=== PATIENT | female | born 1955 | race Caucasian/White ===

== ENCOUNTER 2019-05-17 13:48 | Emergency (ER) | payer BC ==
--- OUTSIDE RECORDS SUMMARY | 2019-05-17 13:52 | XMS REPORT | Continuity of Care Document ---
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) Hypothyroidism Active Problem 07/30/2016 MH (disorder) [facility] Mass of back Resolved Problem 07/30/2016 (finding) [facility] Obesity Active Problem 07/30/2016 MH (disorder) [facility] Medications Medication Details Route Status Patient Ordering Order Source Instructions Provider Date Fentanyl 50 microgram, Inactive Route: IVP, 2015 [facility] ONCE, Dosing Weight 89.545, kg, Start date: 07/27/16 15:51:00 MMD UNIT TEACHER, Stop date: 07/27/16 15:51:00 MMD UN[employer] TEACHER Fentanyl 50 microgram, Inactive Route: IVP, 2015 [facility] ONCE, Dosing Weight 89.545, kg, Start date: 07/27/16 15:37:00 MMD UNIT TEACHER, Stop date: 07/27/16 15:37:00 MMD UN[employer] TEACHER Flumazenil 0.2 mg, Route: Inactive IVP, PRN, 2015 [facility] Dosing Weight 89.545, kg, PRN Benzodiazepine Reversal, Initial dose, Start date: 07/27/16 15:35:00 MMD UN[employer] TEACHER, Duration: 30 day, Stop date: 08/26/16 15:34:00 MMD UNIT TEACHER Meperidine 12.5 mg, Route: Inactive IVP, Q30Min, 2015 [facility] Dosing Weight 89.545, kg, PRN Other -See Comment, For shivering, Start date: 07/27/16 15:35:00 MMD UNIT TEACHER, Duration: 2 doses or times, Stop date: Limited # of times Diphenhydramine 12.5 mg, Route: Inactive IVP, Drug form: 2015 [facility] INJ, Q6H, Dosing Weight 89.545, kg, PRN Itching, Start date: 07/27/16 15:35:00 MMD UNIT TEACHER, Duration: 30 day, Stop date: 08/26/16 15:34:00 MMD UNIT TEACHER Naloxone 0.4 mg, Route: Inactive 07/[facility] IVP, Q2MIN, 2015 [facility] Dosing Weight 89.545, kg, PRN Narcotic Reversal, Start date: 07/27/16 15:35:00 MMD UNIT TEACHER, Duration: 8 doses or times, Stop date: Limited # of times Promethazine 6.25 mg, Route: Inactive 07/27[facility] IVPB, ONCE, 2015 [facility] Dosing Weight 89.545, kg, PRN Nausea & Vomiting, Start date: 07/27/16 15:35:00 MMD UNIT TEACHER Ondansetron 4 mg, Route: Inactive [facility] IVP, ONCE, 2015 [facility] Dosing Weight 89.545, kg, PRN Nausea & Vomiting, Start date: 07/27/16 15:35:00 MMD UNIT TEACHER Calcium Chloride 1,000 mL, Rate: Inactive 0.0014 MEQ/ML / 125 ml/hr, 2015 [facility] Potassium Infuse over: 8 Chloride 0.004 hr, Route: IV, MEQ/ML / Sodium Dosing Weight Chloride 0.103 89.545 kg, MEQ/ML / Sodium Total Volume: Lactate 0.028 1,000, Start MEQ/ML Injectable date: 07/27/16 Solution 15:35:00 MMD UN[employer] TE[employer]ER, Duration: 30 day, Stop date: 08/26/16 15:34:00 MMD UNIT TEACHER Sodium Chloride 500 mL, Rate: Inactive 0.154 MEQ/ML 125 ml/hr, 2015 [facility] Injectable Infuse over: 4 Solution hr, Route: IV, Dosing Weight 89.545 kg, Total Volume: 500, Start date: 07/27/16 15:35:00 MMD UNIT TEACHER, Duration: 30 day, Stop date: 08/26/16 15:34:00 MMD UNIT TEACHER Labetalol 10 mg, Route: Inactive [facility] IVP, Q5Min, 2015 [facility] Dosing Weight 89.545, kg, PRN Elevated BP, Start date: 07/27/16 15:35:00 MMD UNIT TEACHER, Duration: 5 doses or times, Stop date: Limited # of times esmolol 10 mg, Route: Inactive IVP, Q5Min, 2015 [facility] Dosing Weight 89.545, kg, PRN Other -See Comment, Start date: 07/27/16 15:35:00 MMD UNIT TEACHER, Duration: 5 doses or times, Stop date: Limited # of times Acetaminophen 1,000 mg, Inactive Route: PO, Drug 2015 [facility] form: TAB, ONCE, Dosing Weight 89.545, kg, PRN Pain Score 1-3, Start date: 07/27/16 15:35:00 MMD UNIT TEACHER, Duration: 1 doses or times, Stop date: Limited # of times Hydromorphone 0.5 mg, Route: Inactive IVP, Q5Min, 2015 [facility] Dosing Weight 89.545, kg, PRN Pain Score 7-10, Start date: 07/27/16 15:35:00 MMD UNIT TEACHER, Duration: 4 doses or times, Stop date: Limited # of times Hydralazine 10 mg, Route: Inactive IVP, Q20Min, 2015 [facility] Dosing Weight 89.545, kg, PRN Elevated BP, Start date: 07/27/16 15:35:00 MMD UNIT TEACHER, Duration: 2 doses or times, Stop date: Limited # of times Oxycodone 5 mg, Route: Inactive PO, Drug form: 2015 [facility] TAB, Q4H, Dosing Weight 89.545, kg, PRN Pain Score 4-6, Start date: 07/27/16 15:35:00 MMD UNIT TEACHER, Duration: 30 day, Stop date: 08/26/16 15:34:00 MMD UNIT TEACHER ondansetron Route: IV, Drug Inactive (ANES) form: INJ, 2015 [facility] ONCE, Stop date: 07/27/16 15:23:00 MMD UNIT TEACHER Acetaminophen 300 1 tab, PO, Q6H, Active MG / Codeine PRN pain, X 7 2015 [facility] Phosphate 30 MG day, # 28 tab, Oral Tablet 0 Refill(s) [Tylenol with Codeine #3] Docusate Sodium 100 mg=1 cap, Active 100 MG Oral PO, BID, PRN 2015 Capsule [Colace] Constipation, # 20 cap, 0 Refill(s) ePHEDrine (ANES) Route: IV, Drug Inactive form: INJ, 2015 ONCE, Stop date: 07/27/16 15:08:00 MMD UNIT TEACHER ondansetron Route: IV, Drug Inactive (ANES) form: INJ, 2015 ONCE, Stop date: 07/27/16 14:38:00 MMD UNIT TEACHER dexamethasone Route: IV, Drug Inactive (ANES) form: INJ, 2015 ONCE, Stop date: 07/27/16 14:38:00 MMD UNIT TEACHER midazolam (ANES) Route: IV, Drug Inactive form: SOLN, 2015 ONCE, Stop date: 07/27/16 14:31:00 MMD UNIT TEACHER fentaNYL (ANES) Route: IV, Drug Inactive form: INJ, 2015 ONCE, Stop date: 07/27/16 14:31:00 MMD UNIT TEACHER propofol (ANES) Route: IV, Drug Inactive form: INJ, 2015 ONCE, Stop date: 07/27/16 14:31:00 MMD UNIT TEACHER ceFAZolin (ANES) Route: IV, Drug Inactive form: INJ, 2015 ONCE, Stop date: 07/27/16 14:31:00 MMD UNIT TEACHER lidocaine (ANES) Route: IV, Drug Inactive form: INJ, 2015, Stop date: 07/27/16 14:31:00 MMD UNIT TEACHER LR 1000 mL INJ Route: IV, Inactive (ANES) Total Volume: 2015 1,000, Start date: 07/27/16 13:38:00 MMD UNIT TEACHER, Stop date: 07/27/16 14:38:00 MMD UNIT TEACHER Methylene blue 8.9545 mg, 0.9 Inactive mL, Route: INJ, 2015 Drug form: INJ, ONCE, Dosing Weight 89.545, kg, Start date: 07/27/16 12:47:00 MMD UNIT TEACHER, Stop date: 07/27/16 12:47:00 CSTNotes: (Same as:Methylene Blue) MEDICATION WASTE Product Size: 10 mg Product Wasted: ___ mg Albuterol 0.833 3 mL, Route: Inactive MG/ML / NEB, Drug Form: 2015 [facility] Ipratropium SOLN, Dosing Hydes 0.167 Weight 89.545, MG/ML Inhalant kg, ONCE, STAT, Solution Start date: 07/27/16 10:57:00 MMD UNIT TEACHER, Stop date: 07/27/16 10:57:00 CSTNotes: (Same as: Dumariab) Calcium Chloride 1,000 mL, Rate: Inactive 0.0014 MEQ/ML / 25 ml/hr, 2015 [facility] Potassium Infuse over: 40 Chloride 0.004 hr, Route: IV, MEQ/ML / Sodium Dosing Weight Chloride 0.103 89.545 kg, MEQ/ML / Sodium Total Volume: Lactate 0.028 1,000, Start MEQ/ML Injectable date: 07/27/16 Solution 10:57:00 MMD UNIT TEACHER, Duration: 1 day, Stop date: 07/28/16 10:56:00 MMD UNIT TEACHER Sodium Chloride 500 mL, Rate: Inactive 0.154 MEQ/ML 25 ml/hr, 2015 [facility] Injectable Infuse over: 20 Solution hr, Route: IV, Dosing Weight 89.545 kg, Total Volume: 500, Start date: 07/27/16 10:57:00 MMD UNIT TEACHER, Duration: 1 day, Stop date: 07/28/16 10:56:00 MMD UNIT TEACHER Ancef 2 gm, 100 mL, Inactive Route: IVPB, 2015 [facility] Drug form: INJ, ONCE, Dosing Weight 89.801, kg, Start date: 07/24/16 7:09:00 MMD UNIT TEACHER, Duration: 1 doses or times, Stop date: 07/24/16 7:09:00 MMD UNIT TEACHER, Surgical Prophylaxis Only; For patients Notes: Same as: Ancef Vitamin D3 =1 tab, PO, Active Daily, 0 2015 [facility] Refill(s) droperidol 0.625 mg, IVP No Longer [place] Route: IVP, Active 2012 [facility] ONCE, Dosing Weight 86.364, kg, Start date: 12/02/12 11:50:00, Stop date: 12/02/12 11:50:00 Ofirmev 650 mg, 65 mL, IV No Longer Ba Route: IV, Drug Active 2012 [facility] form: INJ, ONCE, Dosing Weight 86.364, kg, PRN Pain, for acetaminophen-hyd 1 tab, Route: PO No Longer [place] rocodone 325 mg-5 PO, Drug Form: [facility] 2012 [facility] mg oral tablet TAB, Dosing Weight 86.364, kg, Q4H, PRN Pain Score 1-3, Start date: 12/02/12 10:56:00, Duration: 30 day, Stop date: 01/01/13 10:55:00 fentanyl 25 microgram, IVP No Longer [place] 0.5 mL, Route: [facility] 2012 [facility] IVP, Drug form: INJ, Q5Min, Dosing Weight 86.364, kg, PRN Pain Score 4-6, Start date: 12/02/12 10:56:00, Duration: 4 doses or times, Stop date: Limited # of times meperidine 12.5 mg, 0.25 IVP No Longer [place] mL, Route: IVP, 2012 [facility] Drug form: INJ, Q30Min, Dosing Weight 86.364, kg, PRN Other -See Comment, For shivering, Start date: 12/02/12 10:56:00, Duration: 2 doses or times, Stop date: Limited # of times naloxone 0.04 mg, 0.1 IVP No Longer [place] [facility], [facility] Drug form: INJ, Q2MIN, Dosing Weight 86.364, kg, PRN Narcotic Reversal, Start date: 12/02/12 10:56:00, Duration: 8 doses or times, Stop date: Limited # of times flumazenil 0.2 mg, 2 mL, IVP No Longer [place] Route: IVP, [facility] 2012 [facility] Drug form: INJ, PRN, Dosing Weight 86.364, kg, PRN Benzodiazepine Reversal, Initial dose, Start date: 12/02/12 10:56:00, Duration: 5 doses or times, Stop date: Limited # of times hydromorphone 0.5 mg, 0.5 mL, IVP No Longer [place] Route: IVP, [facility] 2012 [facility] Drug form: SOLN, Q5Min, Dosing Weight 86.364, kg, PRN Pain Score 4-6, Start date: 12/02/12 10:56:00, Duration: 5 doses or times, Stop date: Limited # of times ondansetron 4 mg, Route: IVP No Longer [place] IVP, ONCE, Active 2012 [facility] Dosing Weight 86.364, kg, PRN Nausea & Vomiting, Start date: 12/02/12 10:56:00 [place] 5/325 oral 1-2 tab, PO, PO Active [place] tablet Q4-6H, PRN, 15 2012 [facility] tab, 0, 0, Pain, Substitution Allowed, Maintenance Lactated Ringers 1,000 mL, Rate: IV No Longer [place] Luis Injection IV 25 ml/hr, Active 2012 [facility] 1,000 mL Infuse over: 40 hr, Route: IV, kg, Total Volume: 1,000, Start date: 12/02/12 8:43:00, Duration: 30 day, Stop date: 01/01/13 8:42:00 [facility] 1 tab, PO, PO Active oral tablet Daily, 30 tab, 2012 [facility] Substitution Allowed, Maintenance, TAB levothyroxine 50 50 microgram, 1 PO Active mcg (0.05 mg) tab, PO, Daily, 2012 [facility] oral tablet 30 tab, Substitution Allowed, TAB Allergies, Adverse Reactions, Alerts Substance Category Reaction Severity Reaction Status Date Comments Source type Reported sulfa drugs Assertion Drug Active allergy [facility] Immunizations No Data Provided for This Section Results Order Name Results Value Reference Date Interpretation Comments Source Range ELECTROLYTES AGAP 11.5 10.0 - 07/24 20.0 /2015 [facility] ELECTROLYTES A/G Ratio 1.0 0.7 - 1.6 07/24 [facility] ELECTROLYTES Globulin 3.9 2.7 - 4.2 07/24 [facility] ELECTROLYTES B/C Ratio 18 6 - 25 07/24 [facility] ELECTROLYTES AST 13 0 - 37 07/24 [facility] ELECTROLYTES Alk Phos 87 39 - 136 07/24 [facility] ELECTROLYTES Bili Total 0.6 0.2 - 1.3 07/24 [facility] ELECTROLYTES eGFR 72 07/24 Result Comment: The [facility] eGFR is calculated using the CKD-EPI formula. In most young, healthy individuals the eGFR will be >90 mL/min/1.73m2 . The eGFR declines with age. An eGFR of 60-89 may be normal in some populations, particularly the elderly, for whom the CKD-EPI formula has not been extensively validated. Use of the eGFR is not recommended in the following populations:< br/>
Ira viduals with unstable creatinine concentration s, including patients and those with serious co-morbid conditions.<b r/>
Patie nts with extremes in muscle mass or diet.

The data above are obtained from the National Kidney Disease Education Program (NKDEP) which additionally recommends that when the eGFR is used in patients with extremes of body mass index for purposes of drug dosing, the eGFR should be multiplied by the estimated BMI. ELECTROLYTES Potassium 3.5 3.5 - 5.1 07/24 Lvl /2015 [facility] ELECTROLYTES Sodium Lvl 138 135 - 145 07/24 [facility] ELECTROLYTES Calcium Lvl 8.6 8.5 - 10.5 07/24 [facility] ELECTROLYTES Albumin Lvl 3.8 3.5 - 5.0 07/24 [facility] ELECTROLYTES Total 7.7 6.4 - 8.4 07/24 Protein /2015 [facility] ELECTROLYTES ALT 22 0 - 65 07/24 /2015 [facility] ELECTROLYTES CO2 27 24 - 32 07/24 /2015 [facility] ELECTROLYTES Chloride Lvl 103 95 - 109 07/24 /2015 [facility] ELECTROLYTES Creatinine 0.87 0.50 - 07/24 Lvl 1.40 [facility] ELECTROLYTES Glucose Lvl 88 70 - 99 07/24 /2015 [facility] ELECTROLYTES BUN 16 7 - 22 07/24 /2015 [facility] HEMATOLOGY Segs 54.7 45.0 - 07/24 75.0 [facility] HEMATOLOGY Eosinophils 0.3 0.0 - 0.5 07/24 MH # /2016 [facility] HEMATOLOGY Monocytes # 0.6 0.0 - 0.8 07/24 /2015 [facility] HEMATOLOGY Basophils # 0.1 0.0 - 0.2 07/24 /2015 [facility] HEMATOLOGY Lymphocytes 2.0 1.0 - 5.5 07/24 MH # /2016 [facility] HEMATOLOGY Lymphocytes 30.5 20.0 - 07/24 MH 40.0 /2016 [facility] HEMATOLOGY Eosinophils 4.5 0.0 - 4.0 07/24 /2015 [facility] HEMATOLOGY Monocytes 9.1 2.0 - 12.0 07/24 [place] HEMATOLOGY Segs-Bands # 3.6 1.5 - 8.1 11 MH /2015 [place] HEMATOLOGY Basophils 1.2 0.0 - 1.0 07/24 /2015 [place] HEMATOLOGY Hgb 13.2 12.0 - 07/24 MH 16.0 /2015 [place] HEMATOLOGY RBC 4.56 4.20 - 07/24 MH 5.40 /2015 [place] HEMATOLOGY Hct 40.6 36.0 - 07/24 MH 48.0 /2015 [place] HEMATOLOGY MCV 89.0 80.0 - 07/24 MH 98.0 /2015 [place] HEMATOLOGY WBC 6.5 3.7 - 10.4 07/24 /2015 [place] HEMATOLOGY MCHC 32.5 32.0 - 07/24 MH 36.0 /2015 [facility] HEMATOLOGY MCH 28.9 27.0 - 07/24 MH 31.0 /2015 [place] HEMATOLOGY Platelet 327 133 - 450 07/24 /2015 [facility] HEMATOLOGY RDW 14.1 11. - 07/24 MH 14.5 /2015 [facility] HEMATOLOGY MPV 8.7 7.4 - 10.4 07/24 /2015 [facility] HEMATOLOGY MPV 8.6 7.4 - 10.4 03 Normal /2012 [facility] HEMATOLOGY RBC 4.50 4.20 - 11/30 Normal MH 5.40 /2012 [facility] HEMATOLOGY WBC 7.3 3.7 - 10.4 11/30 Normal /2012 [facility] HEMATOLOGY Platelet 336 133 - 450 11/30 Normal /2012 [facility] HEMATOLOGY MCHC 32.5 32.0 - 03 Normal MH 36.0 /2012 [facility] HEMATOLOGY RDW 14.3 11.5 - 11/30 Normal MH 14. [facility] HEMATOLOGY MCH 29.9 27.0 - 11/30 Normal MH 31.0 [facility] HEMATOLOGY Hct 41.4 36.0 - 11/30 Normal MH 48.0 /2012 [facility] HEMATOLOGY MCV 92.1 81.0 - 11/30 Normal MH 99.0 /2012 [facility] HEMATOLOGY Hgb 13.4 12.0 - 11/30 Normal MH 16.0 [facility] HEMATOLOGY Monocytes # 0.6 0.0 - 0.8 / Normal /2012 [facility] HEMATOLOGY Eosinophils 0.2 0.0 - 0.5 / Normal MH # /2012 [facility] HEMATOLOGY Basophils # 0.1 0.0 - 0.2 / Normal /2012 [facility] HEMATOLOGY Segs-Bands # 4.2 1.5 - 8.1 03/20 Normal [facility] HEMATOLOGY Lymphocytes 2.3 1.0 - 5.5 11/30 Normal # /2012 [facility] HEMATOLOGY Eosinophils 3.0 0.0 - 4.0 11/30 Normal [facility] HEMATOLOGY Basophils 0.9 0.0 - 1.0 11/30 Normal [facility] HEMATOLOGY Monocytes 7.7 2.0 - 12.0 11/30 Normal [facility] HEMATOLOGY Lymphocytes 31.7 20.0 - 11/30 Normal 40.0 [facility] HEMATOLOGY Segs 56.7 45.0 - 11/30 Normal 75.0 [facility] Pathology Reports No Data Provided for This Section Diagnostic Reports Report Value Date Source Breast specimen surgery - BREAST SPECIMEN SURGERY 07/27/2016 [facility] UNI-PLANAR RADIOGRAPH SPECIMEN IMAGING RIGHT BREAST- POST LUMPECTOMY: 2015 CLINICAL: Specimen from needle localization right breast cancer. Correlation is made to exams dated: 07/27/2016 mammogram, 07/27/2016 localization - [facility], 06/11/2016 ultrasound biopsy, 2015 ultrasound, 11/19/2011 mammogram - [facility] and 06/07/2003 [facility]ogram - [facility]. A wire localization specimen was imaged using uni-planar radiograph specimen imaging for the concerning spiculated irregular shaped mass/previous biopsy site located in the right breast at 2 o&apos ;clock middle depth. This was described on the previous ultrasound and biopsy reports. IMPRESSION: UNI-PLANAR RADIOGRAPH SPECIMEN IMAGING The imaged specimen includes the biopsied lesion, a biopsy clip and the distal portion of the localization wire. The specimen shows characteristics of the mammographic findings. Specimen radiograph was discussed with the surgeon at approximately 1500 hours on the day of the localization. Please see localization report and separate diagnostic mammogram reports for further details. Karina feliz/:07/27/2016 15:26:08 Civil Cad Tech: Celia Rodriguez, [facility] This exam was dictated and interpreted by [id number] for [facility] Breast [place]. Digital Mammo DX Uni MA - DIGITAL MAMMO DX UNI MA/R 07/27/2016 [facility] UNILATERAL RIGHT DIGITAL DIAGNOSTIC MAMMOGRAM WITH CAD: 07/27/2016 CLINICAL: Post wire digital mammogram films from ultrasound localization. Current study was evaluated with a Computer Aided Detection (CAD) system. Comparison is made to exams dated: 07/27/2016 localization - [facility], 06/11/2016 ultrasound biopsy, 06/03/2016 ultrasound, 2011 mammogram - [facility], 06/07/2003 m ammogram and 05/03/2001 mammogram - [facility] [place] [facility]. The tissue of the right breast is heterogeneously dense, which could obscure detection of small masses. Post procedure right digital mammogram demonstrates successful placement of the needle localization wire. The biopsied mass with clip lies at bead 2-3 of the wire. Radiographs with markings and notes were provided to the surgeon. There is a benign appearing calcification in the right breast. There also are benign appearing scattered densities in the right breast. IMPRESSION: KNOWN BIOPSY PROVEN MALIGNANCY Successful ultrasound needle localization with preoperative films as detailed above. Please see separate ultrasound localization and specimen radiograph reports for more details. Karina atkinst/:07/27/2016 15:26:57 Civil Cad Tech: Celia Rodriguez, [facility] This exam was dictated and interpreted by [id number] for [facility]. Mammogram BI-RADS: 6 Known biopsy proven malignancy Sentinal Node injection Sentinal Node injection NM 07/27/2016 [facility] CLINICAL HISTORY: 60 year-old female with right breast carcinoma presents for preoperative sentinel node injection. TECHNIQUE: The patient was cleaned and prepped in the usual manner. 1 mCi of Tc 99m filtered sulfur colloid was administered in the subareolar location of the right breast. The patient tolerated procedure well. The patient's right breast will be massaged per protocol by the nuclear powerplant mechanic helper prior to sending the patient for surgery. IMPRESSION: Injection performed without incident. No immediate complications. SL: [id number] Guided Needle - GUIDED NEEDLE LOCALIZATION [facility] US/R 07/27/2016 [facility] ULTRASOUND GUIDED WIRE LOCALIZATION RIGHT BREAST WITH POST DIGITAL MAMMOGRAPHIC AND ULTRASOUND IMAGIN07/27/2016 CLINICAL: Right breast 2 o'clock breast cancer preoperative localization exam. PATIENT CONSENT: Oral and written informed consent was obtained by the surgical department but was reviewed with the patient prior to performing this procedure. Risks, benefits, and alternatives were d iscussed with the patient. Risks include but are not limited to pain, infection, bleeding, repeat procedure, pneumothorax, and allergic reaction. The patient understands the plan and wishes to proceed. A time out was performed immediately before the procedure. Correlation is made to exams dated: 06/03/2016 ultrasound, 06/11/2016 ultrasound biopsy and 11/19/2011 mammogram - [facility]. A wire localization using ultrasound guidance was performed for the concerning indistinct irregular shaped mass with biopsy clip located in the right breast at 2 o'clock middle depth. This was described on the previous ultrasound and biopsy reports. The skin was prepped in the usual manner. The localization was approached from the lateral aspect. A wire was inserted adjacent to the marker under ultrasound guidance. A skin adhesive and a sterile dressing were applied to the access site. Post placement digital mammographic and ultrasound imaging demonstrates the tip traverses adjacent to the marker. IMPRESSION: WIRE LOCALIZATION MALIGNANT Wire localization for the mass with biopsy clip in the right breast at 2 o' clock middle depth was successful with no apparent post procedure complications. Pathology indicates malignant results - '1. Right axillary 1st sentinel lymph node: - One lymph node, no tumor present. - Immunohistochemical stain for cytokeratin AE1/AE3 is negative for metastatic carcinoma. 2. Right axillary 2nd sentinel lymph node: - One lymph node, no tumor present. - Immunohistochemical stain for cytokeratin AE1/AE3 is negative for metastatic carcinoma. 3. Right axillary tissue with 3rd sentinel lymph node: - One lymph node, no tumor present. - Immunohistochemical stain for cytokeratin AE1/AE3 is negative for metastatic carcinoma. 4. Right breast needle localization-guided partial mastectomy: - INVASIVE DUCTAL CARCINOMA, NUCLEAR GRADE 2-3. Tumor is at least 3 cm in greatest dimension. - DUCTAL CARCINOMA IN SITU, NUCLEAR GRADE 2-3, SOLID AND CRIBRIFORM PATTERN. - Tumor is probably at 0.2 mm from the closest anterior-superior inked margin of resection and 0.4 mm from the inked posterior margin of resection. - Changes consistent with previous biopsy site. - Fibrocystic changes with columnar cell alteration, duct ectasia, complex sclerosing lesion, focal sclerosing adenosis, and focal chronic inflammation'. Surgical pathology results are concordant with imaging findings. Continued oncologic and surgical consultation is recommended. Above results called to Dr. Costa at approximately 1600 hrs 07/30/16. SUMMARY: Please see separate diagnostic mammogram for details on the localization wire. Specimen radiograph was also performed with results on a separate report. Karina feliz/:07/31/2016 08:27:19 Civil Cad Tech: Rg Nye, [facility] This exam was dictated and interpreted by [id number] for [facility]. Consultation Notes No Data Provided for This Section Discharge Summaries No Data Provided for This Section History and Physicals No Data Provided for This Section Vital Signs Vital Sign Value Date Comments Source Systolic (mm Hg) 122 07/27/2016 [facility] Diastolic (mm Hg) 58 07/27/2016 [facility] Systolic (mm Hg) 138 07/27/2016 [facility] Diastolic (mm Hg) 58 07/27/2016 [facility] Systolic (mm Hg) 139 07/27/2016 [facility] Diastolic (mm Hg) 70 07/27/2016 [facility] Respitory Rate 14 07/27/2016 [facility] Respitory Rate 14 07/27/2016 [facility] Respitory Rate 14 07/27/2016 [facility] Heart Rate 70 07/27/2016 [facility] Heart Rate 68 07/24/2016 [facility] Temperature Oral (F) 97.9 F 07/24/2016 [facility] Height 167.64 cm 07/24/2016 [facility] Weight 89.545 07/24/2016 [facility] BMI Calculated 31.86 07/24/2016 [facility] Systolic (mm Hg) 112 12/02/2012 [facility] Diastolic (mm Hg) 63 12/02/2012 [facility] Respitory Rate 15 12/02/2012 [facility] Diastolic (mm Hg) 63 12/02/2012 [facility] Systolic (mm Hg) 111 12/02/2012 [facility] Respitory Rate 22 12/02/2012 [facility] Diastolic (mm Hg) 59 12/02/2012 [facility] Respitory Rate 15 12/02/2012 [facility] Systolic (mm Hg) 104 12/02/2012 [facility] Heart Rate 79 12/02/2012 [facility] Height 167.64 cm 11/30/2012 [facility] Heart Rate 88 11/30/2012 [facility] Temperature Oral (F) 97.6 F 11/30/2012 [facility] Height 167.64 cm 11/30/2012 [facility] Weight 86.364 11/30/2012 [facility] Encounters Location Location Encounter Encounter Reason Attending ADM DC Status Source Details Type Number For Provider Date Date Visit OD [id number] V76.11 - GISELL 11/18 Active [facility] 0 SCREEN SMITH [place] MAMMOGRA DS [id number] JAZZ 12/02 12/02 Discharg [facility] 0 CHARLES /2012 ed [facility] Outpatient [id number] HYLTON LE 07/07 [facility] [place] Outpatient [id number] HYLTON LE 07/27 [facility] [id number] Hylton Le 07/27 07/27 [facility] Outpatient [id number] HYLTON LE 08/04 [facility] Outpatient [id number] HYLTON LE 08/27 [facility] Procedures Procedure Code Date Perfomer Comments Source Metal foreign [id number] 09/13/2013 Remove [facility] body in Hardware foot<sup>1</sup> 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 Alcohol Never Smoking Status Never smoker; Exposure to Tobacco Smoke None; Cigarette Smoking Last 365 Days No; Reg Smoking Cessation Counseling No Family History No Data Provided for This Section Advance Directives No Data Provided for This Section Functional Status No Data Provided for This Section
--- OUTSIDE RECORDS SUMMARY | 2019-05-17 13:52 | XMS REPORT | Summary of Care ---
:1955 Author Organization [facility] Address [address] [place], [place] [address]- Encounter HQ Tesfaye(FIN) [id number] Date(s): 07/27/16 - 07/27/16 [facility] [address] [place] [address]- Discharge Disposition: Home or Self Care Attending Physician: Warner Costa MD Referring Physician: Warner Costa MD Vital Signs Most recent to oldest 1 2 3 [Reference Range]: Height 167.64 cm (07/24/16 6:51 AM) Temperature Oral [96.4-99.1 97.9 DegF DegF] (07/24/16 6:56 AM) Blood Pressure 122/58 mmHg 138/58 mmHg 139/70 mmHg [90-140/60-90 mmHg] (07/27/16 4:41 PM) (07/27/16 4:05 PM) (07/27/16 3:45 PM) Respiratory Rate [14-20 14 BRMIN 14 BRMIN 14 BRMIN BRMIN] (07/27/16 3:45 PM) (07/27/16 3:30 PM) (07/27/16 3:16 PM) Peripheral Pulse Rate 70 bpm 68 bpm [60-100 bpm] (07/27/16 11:01 AM) (07/24/16 6:56 AM) Weight 89.545 kg (07/24/16 6:51 AM) Body Mass Index 31.86 m2 (07/24/16 6:51 AM) Problem List Condition Effective Dates Status Health Status Informant Hypertension(Confirmed) Active Hypothyroid(Confirmed) Active Mass of back(Confirmed) Resolved Obesity(Confirmed) Active Allergies, Adverse Reactions, Alerts Substance Reaction Severity Status sulfa drugs Active Medications albuterol-ipratropium 2.5-0.5 mg inhalation solution 3 mL, Route: NEB, Drug Form: SOLN, Dosing Weight 89.545, kg, ONCE, STAT, Start date: 07/27/16 10:57:00 PLATE SETTER, Stop date: 07/27/16 10:57:00 PLATE SETTER Notes: (Same as: Laure) Start Date: 07/27/16 Stop Date: 07/27/16 Status: DiscontinuedAncef 2 gm, 100 mL, Route: IVPB, Drug form: INJ, ONCE, Dosing Weight 89.801, kg, Start date: 07/24/16 7:09:00 PLATE SETTER, Duration: 1 doses or times, Stop date: 7:09:00 PLATE SETTER, Surgical Prophylaxis Only; For patients < 120 kg Notes: Same as: Ancef Start Date: 07/24/16 Stop Date: 07/24/16 Status: OrderedANES acetaminophen 1,000 mg, Route: PO, Drug form: TAB, ONCE, Dosing Weight 89.545, kg, PRN Pain Score 1-3, Start date:07/27/16 15:35:00 PLATE SETTER, Duration: 1 doses or times, Stop date: Limited # of times Start Date: 07/27/16 Stop Date: 07/27/16 Status: DiscontinuedANES diphenhydrAMINE 12.5 mg, Route: IVP, Drug form: INJ, Q6H, Dosing Weight 89.545, kg, PRN Itching , Start date: 07/27/16 15:35:00 PLATE SETTER, Duration: 30 day, Stop date: 08/26/16 15:34 :00 PLATE SETTER Start Date: 07/27/16 Stop Date: 07/27/16 Status: DiscontinuedANES esmolol 10 mg, Route: IVP, Q5Min, Dosing Weight 89.545, kg, PRN Other -See Comment, Start date: 07/27/16 15:35:00 PLATE SETTER, Duration: 5 doses or times, Stop date: Limited # of times Start Date: 07/27/16 Stop Date: 07/27/16 Status: DiscontinuedANES flumazenil 0.2 mg, Route: IVP, PRN, Dosing Weight 89.545, kg, PRN Benzodiazepine Reversal, Initial dose, Start date: 07/27/16 15:35:00 PLATE SETTER, Duration: 30 day, Stop date: 15:34:00 PLATE SETTER Start Date: 07/27/16 Stop Date: 07/27/16 Status: DiscontinuedANES hydrALAZINE 10 mg, Route: IVP, Q20Min, Dosing Weight 89.545, kg, PRN Elevated BP, Start date : 07/27/16 15:35:00 PLATE SETTER, Duration: 2 doses or times, Stop date: Limited # of times Start Date: 07/27/16 Stop Date: 07/27/16 Status: DiscontinuedANES HYDROmorphone 0.5 mg, Route: IVP, Q5Min, Dosing Weight 89.545, kg, PRN Pain Score 7-10, Start date: 07/27/16 15:35:00 PLATE SETTER, Duration: 4 doses or times, Stop date: Limited # of times Start Date: 07/27/16 Stop Date: 07/27/16 Status: DiscontinuedANES labetalol 10 mg, Route: IVP, Q5Min, Dosing Weight 89.545, kg, PRN Elevated BP, Start date : 07/27/16 15:35:00 PLATE SETTER, Duration: 5 doses or times, Stop date: Limited # of times Start Date: 07/27/16 Stop Date: 07/27/16 Status: DiscontinuedANES meperidine 12.5 mg, Route: IVP, Q30Min, Dosing Weight 89.545, kg, PRN Other -See Comment, For shivering, Start date: 07/27/16 15:35:00 PLATE SETTER, Duration: 2 doses or times, Stop date: Limited # of times Start Date: 07/27/16 Stop Date: 07/27/16 Status: DiscontinuedANES naloxone 0.4 mg, Route: IVP, Q2MIN, Dosing Weight 89.545, kg, PRN Narcotic Reversal, Start date: 07/27/16 15:35:00 PLATE SETTER, Duration: 8 doses or times, Stop date: Limited # of times Start Date: 07/27/16 Stop Date: 07/27/16 Status: DiscontinuedANES ondansetron 4 mg, Route: IVP, ONCE, Dosing Weight 89.545, kg, PRN Nausea & Vomiting, Start date: 07/27/16 15:35:00 PLATE SETTER Start Date: 07/27/16 Stop Date: 07/27/16 Status: DiscontinuedANES oxyCODONE 5 mg, Route: PO, Drug form: TAB, Q4H, Dosing Weight 89.545, kg, PRN Pain Score 4 -6, Start date: 07/27/16 15:35:00 PLATE SETTER, Duration: 30 day, Stop date: 08/26/16 15: 34:00 PLATE SETTER Start Date: 07/27/16 Stop Date: 07/27/16 Status: DiscontinuedANES oxyCODONE 10 mg, Route: PO, Drug form: TAB, Q4H, Dosing Weight 89.545, kg, PRN Pain Score 7-10, Start date: 07/27/16 15:35:00 PLATE SETTER, Duration: 30 day, Stop date: 08/26/16 15:34:00 PLATE SETTER Start Date: 07/27/16 Stop Date: 07/27/16 Status: DiscontinuedANES promethazine 6.25 mg, Route: IVPB, ONCE, Dosing Weight 89.545, kg, PRN Nausea & Vomiting , Start date: 07/27/16 15:35:00 PLATE SETTER Start Date: 07/27/16 Stop Date: 07/27/16 Status: DiscontinuedceFAZolin (ANES) Route: IV, Drug form: INJ, ONCE, Stop date: 07/27/16 14:31:00 PLATE SETTER Start Date: 07/27/16 Stop Date: 07/27/16 Status: CompletedColace 100 mg oral capsule 100 mg=1 cap, PO, BID, PRN Constipation, # 20 cap, 0 Refill(s) Start Date: 07/27/16 Status: Ordereddexamethasone (ANES) Route: IV, Drug form: INJ, ONCE, Stop date: 07/27/16 14:38:00 PLATE SETTER Start Date: 07/27/16 Stop Date: 07/27/16 Status: CompletedePHEDrine (ANES) Route: IV, Drug form: INJ, ONCE, Stop date: 07/27/16 15:08:00 PLATE SETTER Start Date: 07/27/16 Stop Date: 07/27/16 Status: CompletedfentaNYL 50 microgram, Route: IVP, ONCE, Dosing Weight 89.545, kg, Start date: 07/27/16 15:51:00 PLATE SETTER, Stop date: 07/27/16 15:51:00 PLATE SETTER Start Date: 07/27/16 Stop Date: 07/27/16 Status: CompletedfentaNYL 50 microgram, Route: IVP, ONCE, Dosing Weight 89.545, kg, Start date: 07/27/16 15:37:00 PLATE SETTER, Stop date: 07/27/16 15:37:00 PLATE SETTER Start Date: 07/27/16 Stop Date: 07/27/16 Status: CompletedfentaNYL (ANES) Route: IV, Drug form: INJ, ONCE, Stop date: 07/27/16 14:31:00 PLATE SETTER Start Date: 07/27/16 Stop Date: 07/27/16 Status: CompletedLactated Ringers 1,000 mL 1,000 mL, Rate: 25 ml/hr, Infuse over: 40 hr, Route: IV, Dosing Weight 89.545 kg , Total Volume: 1,000, Start date: 07/27/16 10:57:00 PLATE SETTER, Duration: 1 day, Stop date: 07/28/16 10:56:00 PLATE SETTER Start Date: 07/27/16 Stop Date: 07/27/16 Status: DiscontinuedLactated Ringers Injection IV 1000 mL 1,000 mL, Rate: 125 ml/hr, Infuse over: 8 hr, Route: IV, Dosing Weight 89.545 kg , Total Volume: 1,000, Start date: 07/27/16 15:35:00 PLATE SETTER, Duration: 30 day, Stop date: 08/26/16 15:34:00 PLATE SETTER Start Date: 07/27/16 Stop Date: 07/27/16 Status: Discontinuedlidocaine (ANES) Route: IV, Drug form: INJ, ONCE, Stop date: 07/27/16 14:31:00 PLATE SETTER Start Date: 07/27/16 Stop Date: 07/27/16 Status: CompletedLR 1000 mL INJ (ANES) Route: IV, Total Volume: 1,000, Start date: 07/27/16 13:38:00 PLATE SETTER, Stop date: 14:38:00 PLATE SETTER Start Date: 07/27/16 Stop Date: 07/27/16 Status: Completedmethylene blue 8.9545 mg, 0.9 mL, Route: INJ, Drug form: INJ, ONCE, Dosing Weight 89.545, kg, Start date: 07/27/16 12:47:00 PLATE SETTER, Stop date: 07/27/16 12:47:00 PLATE SETTER Notes: (Same as:Methylene Blue) MEDICATION WASTE Product Size: 10 mgProduct Wasted: ___ mg Start Date: 07/27/16 Stop Date: 07/27/16 Status: Orderedmidazolam (ANES) Route: IV, Drug form: SOLN, ONCE, Stop date: 07/27/16 14:31:00 PLATE SETTER Start Date: 07/27/16 Stop Date: 07/27/16 Status: Completedondansetron (ANES) Route: IV, Drug form: INJ, ONCE, Stop date: 07/27/16 14:38:00 PLATE SETTER Start Date: 07/27/16 Stop Date: 07/27/16 Status: Completedondansetron (ANES) Route: IV, Drug form: INJ, ONCE, Stop date: 07/27/16 15:23:00 PLATE SETTER Start Date: 07/27/16 Stop Date: 07/27/16 Status: Completedpropofol (ANES) Route: IV, Drug form: INJ, ONCE, Stop date: 07/27/16 14:31:00 PLATE SETTER Start Date: 07/27/16 Stop Date: 07/27/16 Status: Completedsodium chloride 0.9% 500 ml INJ 500 mL 500 mL, Rate: 25 ml/hr, Infuse over: 20 hr, Route: IV, Dosing Weight 89.545 kg, Total Volume: 500, Start date: 07/27/16 10:57:00 PLATE SETTER, Duration: 1 day, Stop date : 07/28/16 10:56:00 PLATE SETTER Start Date: 07/27/16 Stop Date: 07/27/16 Status: DiscontinuedSodium Chloride 0.9% IV 500 mL 500 mL, Rate: 125 ml/hr, Infuse over: 4 hr, Route: IV, Dosing Weight 89.545 kg, Total Volume: 500, Start date: 07/27/16 15:35:00 PLATE SETTER, Duration: 30 day, Stop date: 08/26/16 15:34:00 PLATE SETTER Start Date: 07/27/16 Stop Date: 07/27/16 Status: DiscontinuedTylenol with Codeine #3 oral tablet 1 tab, PO, Q6H, PRN pain, X 7 day, # 28 tab, 0 Refill(s) Start Date: 07/27/16 Stop Date: 08/03/16 Status: OrderedVitamin D3 =1 tab, PO, Daily, 0 Refill(s) Start Date: 07/24/16 Status: Ordered Results ELECTROLYTES Most recent to oldest [Reference Range]: 1 Sodium Lvl [135-145 mEq/L] 138 mEq/L (07/24/16 7:25 AM) Potassium Lvl [3.5-5.1 mEq/L] 3.5 mEq/L (07/24/16 7:25 AM) Chloride Lvl [95-109 mEq/L] 103 mEq/L (07/24/16 7:25 AM) CO2 [24-32 mEq/L] 27 mEq/L (07/24/16 7:25 AM) AGAP [10.0-20.0 mEq/L] 11.5 mEq/L (07/24/16 7:25 AM) CHEM PANEL Most recent to oldest [Reference Range]: 1 Creatinine Lvl [0.50-1.40 mg/dL] 0.87 mg/dL (07/24/16 7:25 AM) eGFR 72 mL/min/1.73m2 1 *NA* (07/24/16 7:25 AM) BUN [7-22 mg/dL] 16 mg/dL (07/24/16 7:25 AM) B/C Ratio [6-25] 18 (07/24/16 7:25 AM) Glucose Lvl [70-99 mg/dL] 88 mg/dL (07/24/16 7:25 AM) Total Protein [6.4-8.4 g/dL] 7.7 g/dL (07/24/16 7:25 AM) Albumin Lvl [3.5-5.0 g/dL] 3.8 g/dL (07/24/16 7:25 AM) Globulin [2.7-4.2 g/dL] 3.9 g/dL (07/24/16 7:25 AM) A/G Ratio [0.7-1.6] 1.0 (07/24/16 7:25 AM) Calcium Lvl [8.5-10.5 mg/dL] 8.6 mg/dL (07/24/16 7:25 AM) ALT [0-65 unit/L] 22 unit/L (07/24/16 7:25 AM) AST [0-37 unit/L] 13 unit/L (07/24/16 7:25 AM) Alk Phos [39-136 unit/L] 87 unit/L (07/24/16 7:25 AM) Bili Total [0.2-1.3 mg/dL] 0.6 mg/dL (07/24/16 7:25 AM) 1Result Comment: The eGFR is calculated using the CKD-EPI formula. In most young , healthy individualsthe eGFR will be >90 mL/min/1.73m2. The eGFR declines with age. An eGFR of 60-89 may be normal in some populations, particularly the elderly, for whom the CKD-EPI formula has not been extensively validated. Use of the eGFR is not recommended in the following populations: Individuals with unstable creatinine concentrations, including patients and those with serious co-morbid conditions. Patients with extremes in muscle mass or diet. The data above are obtained from the National Kidney Disease Education Program ( NKDEP) which additionally recommends that when the eGFR is used in patients with extremes of body mass index for purposesof drug dosing, the eGFR should be multiplied by the estimated BMI.HEMATOLOGY Most recent to oldest [Reference Range]: 1 WBC [3.7-10.4 K/CMM] 6.5 K/CMM (07/24/16 7:25 AM) RBC [4.20-5.40 M/CMM] 4.56 M/CMM (07/24/16 7:25 AM) Hgb [12.0-16.0 g/dL] 13.2 g/dL (07/24/16 7:25 AM) Hct [36.0-48.0 %] 40.6 % (07/24/16 7:25 AM) MCV [80.0-98.0 fL] 89.0 fL (07/24/16 7:25 AM) MCH [27.0-31.0 pg] 28.9 pg (07/24/16 7:25 AM) MCHC [32.0-36.0 g/dL] 32.5 g/dL (07/24/16 7:25 AM) RDW [11.5-14.5 %] 14.1 % (07/24/16 7:25 AM) Platelet [133-450 K/CMM] 327 K/CMM (07/24/16 7:25 AM) MPV [7.4-10.4 fL] 8.7 fL (07/24/16 7:25 AM) Segs [45.0-75.0 %] 54.7 % (07/24/16 7:25 AM) Lymphocytes [20.0-40.0 %] 30.5 % (07/24/16 7:25 AM) Monocytes [2.0-12.0 %] 9.1 % (07/24/16 7:25 AM) Eosinophils [0.0-4.0 %] 4.5 % *HI* (07/24/16 7:25 AM) Basophils [0.0-1.0 %] 1.2 % *HI* (07/24/16 7:25 AM) Segs-Bands # [1.5-8.1 K/CMM] 3.6 K/CMM (07/24/16 7:25 AM) Lymphocytes # [1.0-5.5 K/CMM] 2.0 K/CMM (07/24/16 7:25 AM) Monocytes # [0.0-0.8 K/CMM] 0.6 K/CMM (07/24/16 7:25 AM) Eosinophils # [0.0-0.5 K/CMM] 0.3 K/CMM (07/24/16 7:25 AM) Basophils # [0.0-0.2 K/CMM] 0.1 K/CMM (07/24/16 7:25 AM) Immunizations No data available for this section Procedures Procedure Date Related Diagnosis Body Site Metal foreign body in foot1 09/2013 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 Alcohol Never Smoking Status Never smoker; Exposure to Tobacco Smoke None; Cigarette Smoking Last 365 Days No; Reg Smoking Cessation Counseling No Assessment and Plan No data available for this section
--- OUTSIDE RECORDS SUMMARY | 2019-05-17 13:52 | XMS REPORT | CCD ---
:1955 Author Organization [facility] Care Team Providers Name Role Phone Liliana Riveraveronika Amado Referring Provider Allergies, Adverse Reactions, Alerts Substance Reaction Status NKDA Active Problem List Condition Effective Dates Status Hypothyroid Active Mass of back Active Medications Medication Instructions Start Date End Date Status Lactated Ringers 1,000 mL, Rate: 25 ml/hr, 12/02/2012 12/02/2012 Discontinued Injection IV 1,000 mL Infuse over: 40 hr, Route: IV, kg, Total Volume: 1,000, Start date: 12/02/12 8:43:00, Duration: 30 day, Stop date: 01/01/13 8:42:00 Ofirmev 650 mg, 65 mL, Route: IV, 12/02/2012 12/02/2012 Discontinued Drug form: INJ, ONCE, Dosing Weight 86.364, kg, PRN Pain, for <50 kg, Start date: 12/02/12 10:56:00 acetaminophen-hydrocodone 1 tab, Route: PO, Drug 12/02/2012 12/02/2012 Discontinued 325 mg-5 mg oral tablet Form: TAB, Dosing Weight 86.364, kg, Q4H, PRN Pain Score 1-3, Start date: 12/02/12 10:56:00, Duration: 30 day, Stop date: 01/01/13 10:55:00 acetaminophen-hydrocodone 2 tab, Route: PO, Drug 12/02/2012 12/02/2012 Discontinued 325 mg-5 mg oral tablet Form: TAB, Dosing Weight 86.364, kg, Q4H, PRN Pain Score 4-6, Start date: 12/02/12 10:56:00, Duration: 30 day, Stop date: 01/01/13 10:55:00 fentanyl 25 microgram, 0.5 mL, 12/02/2012 12/02/2012 Discontinued Route: IVP, Drug form: INJ, Q5Min, Dosing Weight 86.364, kg, PRN Pain Score 4-6, Start date: 12/02/12 10:56:00, Duration: 4 doses or times, Stop date: Limited # of times meperidine 12.5 mg, 0.25 mL, Route: 12/02/2012 12/02/2012 Discontinued IVP, Drug form: INJ, Q30Min, Dosing Weight 86.364, kg, PRN Other -See Comment, For shivering, Start date: 12/02/12 10:56:00, Duration: 2 doses or times, Stop date: Limited # of times naloxone 0.04 mg, 0.1 mL, Route: 12/02/2012 12/02/2012 Discontinued IVP, Drug form: INJ, Q2MIN, Dosing Weight 86.364, kg, PRN Narcotic Reversal, Start date: 12/02/12 10:56:00, Duration: 8 doses or times, Stop date: Limited # of times flumazenil 0.2 mg, 2 mL, Route: IVP, 12/02/2012 12/02/2012 Discontinued Drug form: INJ, PRN, Dosing Weight 86.364, kg, PRN Benzodiazepine Reversal, Initial dose, Start date: 12/02/12 10:56:00, Duration: 5 doses or times, Stop date: Limited # of times hydromorphone 0.5 mg, 0.5 mL, Route: 12/02/2012 12/02/2012 Discontinued IVP, Drug form: SOLN, Q5Min, Dosing Weight 86.364, kg, PRN Pain Score 4-6, Start date: 12/02/12 10:56:00, Duration: 5 doses or times, Stop date: Limited # of times ondansetron 4 mg, Route: IVP, ONCE, 12/02/2012 12/02/2012 Completed Dosing Weight 86.364, kg, PRN Nausea & Vomiting, Start date: 12/02/12 10:56:00 One-A-Day Women oral 1 tab, PO, Daily, 30 tab, 11/30/2012 Ordered tablet Substitution Allowed, Maintenance, TAB [place] 5/325 oral tablet 1-2 tab, PO, Q4-6H, PRN, 12/02/2012 12/07/2012 Ordered 15 tab, 0, 0, Pain, Substitution Allowed, Maintenance levothyroxine 50 mcg 50 microgram, 1 tab, PO, 11/30/2012 Ordered (0.05 mg) oral tablet Daily, 30 tab, Substitution Allowed, TAB droperidol 0.625 mg, Route: IVP, 12/02/2012 12/02/2012 Completed ONCE, Dosing Weight 86.364, kg, Start date: 12/02/12 11:50:00, Stop date: 12/02/12 11:50:00 Vital Signs Most recent to oldest 1 2 3 [Reference Range]: Height 167.64 cm 167.64 cm (11/30/2012 10:36:00) (11/30/2012 09:06:00) Current Weight 90 kg (11/30/2012 10:36:00) Temperature Oral 97.6 DegF [96.4-99.1 DegF] (11/30/2012 10:36:00) Systolic Blood Pressure 112 mmHg 111 mmHg 104 mmHg [90-140 mmHg] (12/02/2012 12:00:00) (12/02/2012 11:35:00) (12/02/2012 11:20: 00) Diastolic Blood Pressure 63 mmHg 63 mmHg 59 mmHg [60-90 mmHg] (12/02/2012 12:00:00) (12/02/2012 11:35:00) *LOW* (12/02/2012 11:20:00) Respiratory Rate [14-20 15 BRMIN 22 BRMIN 15 BRMIN BRMIN] (12/02/2012 12:00:00) *HI* (12/02/2012 11:20:00) (12/02/2012 11:35:00) Peripheral Pulse Rate 79 bpm 88 bpm [60-100 bpm] (12/02/2012 08:42:00) (11/30/2012 10:36:00) Weight 86.364 kg (11/30/2012 09:06:00) Results HEMATOLOGY Most recent to oldest [Reference Range]: 1 WBC [3.7-10.4 K/CMM] 7.3 K/CMM (11/30/2012 10:10:00) RBC [4.20-5.40 M/CMM] 4.50 M/CMM (11/30/2012 10:10:00) Hgb [12.0-16.0 g/dL] 13.4 g/dL (11/30/2012 10:10:00) Hct [36.0-48.0 %] 41.4 % (11/30/2012 10:10:00) MCV [81.0-99.0 fL] 92.1 fL (11/30/2012 10:10:00) MCH [27.0-31.0 pg] 29.9 pg (11/30/2012 10:10:00) MCHC [32.0-36.0 g/dL] 32.5 g/dL (11/30/2012 10:10:00) RDW [11.5-14.5 %] 14.3 % (11/30/2012 10:10:00) Platelet [133-450 K/CMM] 336 K/CMM (11/30/2012 10:10:00) MPV [7.4-10.4 fL] 8.6 fL (11/30/2012 10:10:00) Segs [45.0-75.0 %] 56.7 % (11/30/2012 10:10:00) Lymphocytes [20.0-40.0 %] 31.7 % (11/30/2012 10:10:00) Monocytes [2.0-12.0 %] 7.7 % (11/30/2012 10:10:00) Eosinophils [0.0-4.0 %] 3.0 % (11/30/2012 10:10:00) Basophils [0.0-1.0 %] 0.9 % (11/30/2012 10:10:00) Segs-Bands # [1.5-8.1 K/CMM] 4.2 K/CMM (11/30/2012 10:10:00) Lymphocytes # [1.0-5.5 K/CMM] 2.3 K/CMM (11/30/2012 10:10:00) Monocytes # [0.0-0.8 K/CMM] 0.6 K/CMM (11/30/2012 10:10:00) Eosinophils # [0.0-0.5 K/CMM] 0.2 K/CMM (11/30/2012 10:10:00) Basophils # [0.0-0.2 K/CMM] 0.1 K/CMM (11/30/2012 10:10:00) Procedures Procedures Date Related Diagnosis Laparoscopy 03/09/1974 00:00:00
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
--- NOTE | 2019-05-17 14:16 | ER ---
Nurse's Notes [facility] Name: Vonda Mariee Age: 63 yrs Sex: Female : 1955 Arrival Date: 05/17/2019 Time: 13:52 Bed 16 Private MD: Diagnosis: Localized swelling, mass and lump of skin and subcutaneous tissue-forehead Presentation: 05/17 13:53 Presenting complaint: Patient states: i noticed this knot on my forehead on Wednesday, i tw2 dont know what happened. Transition of care: patient was not received from another setting of care. Onset of symptoms was May 17, 2019. Risk Assessment: Do you want to hurt yourself or someone else? Patient reports no desire to harm self or others. Initial Sepsis Screen: Does the patient meet any 2 criteria? No. Patient's initial sepsis screen is negative. Does the patient have a suspected source of infection? No. Patient's initial sepsis screen is negative. Care prior to arrival: None. 13:53 Method Of Arrival: Ambulatory tw2 13:53 Acuity: TIFFANIE 4 tw2 13:54 Presenting complaint: Patient states: "when it started out it looked swollen then that tw2 went away now this little knot is still there". Note pt denies headache, denies injury or fall. Triage Assessment: 13:58 General: Appears in no apparent distress. obese, well groomed, Behavior is calm, tw2 cooperative, appropriate for age. Pain: Denies pain. Derm: small elevated, (pencil eraser sized )skin noted to LEFT forehead, near hair line, no redness noted. Historical: - Allergies: 13:57 sulfamethoxazole-trimethoprim; tw2 13:57 TRIMETHOPRIM; tw2 - Home Meds: 13:57 losartan 25 mg oral tab 1 tab once daily [Active]; levothyroxine 50 mcg tab 1 tab once tw2 daily [Active]; - PMHx: 13:57 Hypothyroidism; Hypertension; tw2 - PSHx: 13:57 left ankle; Right lympectomy; partial Right Breast removal; Breast CA; tw2 - Immunization history:: Adult Immunizations. - Social history:: Smoking status: . - Ebola Screening: : Patient denies travel to an Ebola-affected area in the 21 days before illness onset. Screenin:37 Abuse screen: Denies threats or abuse. Denies injuries from another. Nutritional mg2 screening: No deficits noted. Tuberculosis screening: No symptoms or risk factors identified. Fall Risk None identified. Assessment: 14:36 General: Appears in no apparent distress. comfortable, Behavior is calm, cooperative. mg2 Pain: Denies pain. Neuro: Level of Consciousness is awake, alert, obeys commands, Oriented to person, place, time, situation. Cardiovascular: Capillary refill < 3 seconds Patient's skin is warm and dry. Respiratory: Airway is patent Respiratory effort is even, unlabored, Respiratory pattern is regular, symmetrical. GI: No signs and/or symptoms were reported involving the gastrointestinal system. : No signs and/or symptoms were reported regarding the genitourinary system. EENT: No deficits noted. Derm: Skin is intact, is healthy with good turgor, Skin is pink, warm \\T\\ dry. normal, lump noted in the forehead. Musculoskeletal: Circulation, motion, and sensation intact. Capillary refill < 3 seconds. Vital Signs: 13:57 BP 143 / 75; Pulse 89; Resp 17; Temp 97.3(TE); Pulse Ox 98% on R/A; Weight 90.72 kg tw2 (R); Height 5 ft. 6 in. (167.64 cm); Pain 0/10; 14:37 BP 135 / 78; Pulse 88; Resp 18; Temp 98; Pulse Ox 100% on R/A; mg2 13:57 Body Mass Index 32.28 (90.72 kg, 167.64 cm) tw2 ED Course: 13:52 Patient arrived in ED. mr 13:52 out of town, doctor is Private Physician. mr 13:54 Triage completed. tw2 13:57 Arm band placed on. tw2 14:02 Sandeep Rosas NP is PHCP. pm1 14:02 Adam Wooten MD is Attending Physician. pm1 14:11 Arjun Scott, MARGARET is Primary Nurse. mg2 14:37 Patient has correct armband on for positive identification. mg2 14:37 No provider procedures requiring assistance completed. Patient did not have IV access mg2 during this emergency room visit. Administered Medications: No medications were administered Outcome: 14:16 Discharge ordered by . pm1 14:38 Discharged to home ambulatory. mg2 14:38 Condition: stable 14:38 Discharge instructions given to patient, Instructed on discharge instructions, follow up and referral plans. Demonstrated understanding of instructions, follow-up care. 14:38 Patient left the ED. mg2 Signatures: Eliana Vaughan AlisonSandeep NP DEWATERING FILTERING SUPERVISOR pm1 Jaclyn Branch RN RN tw2 Arjun Scott RN RN mg2
--- NOTE | 2019-05-17 14:16 | EDPHYS ---
Physician Documentation [facility] Name: Vonda Mariee Age: 63 yrs Sex: Female : 1955 Arrival Date: 05/17/2019 Time: 13:52 Bed 16 Private MD: ED Physician Adam Wooten HPI: 05/17 14:15 This 63 yrs old Female presents to ER via Ambulatory with complaints of Knot pm1 on forehead. 14:15 Patient presents with complaint of knot to forehead. Onset: The symptoms/episode pm1 began/occurred yesterday. Severity of symptoms: in the emergency department the symptoms have improved markedly. The patient has not experienced similar symptoms in the past. The patient has not recently seen a physician. Patient with a circular bump on her forehead that appeared yesterday and has decreased in size today. Nonpainful. Denies trauma. Historical: - Allergies: 13:57 sulfamethoxazole-trimethoprim; tw2 13:57 TRIMETHOPRIM; tw2 - Home Meds: 13:57 losartan 25 mg oral tab 1 tab once daily [Active]; levothyroxine 50 mcg tab 1 tab once tw2 daily [Active]; - PMHx: 13:57 Hypothyroidism; Hypertension; tw2 - PSHx: 13:57 left ankle; Right lympectomy; partial Right Breast removal; Breast CA; tw2 - Immunization history:: Adult Immunizations. - Social history:: Smoking status: . - Ebola Screening: : Patient denies travel to an Ebola-affected area in the 21 days before illness onset. ROS: 14:15 Constitutional: Negative for fever, chills, and weight loss, Eyes: Negative for injury, pm1 pain, redness, and discharge, ENT: Negative for injury, pain, and discharge, Neck: Negative for injury, pain, and swelling, Cardiovascular: Negative for chest pain, palpitations, and edema, Respiratory: Negative for shortness of breath, cough, wheezing, and pleuritic chest pain, Abdomen/GI: Negative for abdominal pain, nausea, vomiting, diarrhea, and constipation, Back: Negative for injury and pain, MS/Extremity: Negative for injury and deformity. 14:15 Neuro: Negative for headache, weakness, numbness, tingling, and seizure. 14:15 Skin: Positive for raised circular bump on forehead, Negative for abscesses, cellulitis. Exam: 14:15 Constitutional: This is a well developed, well nourished patient who is awake, alert, pm1 and in no acute distress. Head/Face: Normocephalic, atraumatic. Eyes: Pupils equal round and reactive to light, extra-ocular motions intact. Lids and lashes normal. Conjunctiva and sclera are non-icteric and not injected. Cornea within normal limits. Periorbital areas with no swelling, redness, or edema. ENT: Nares patent. No nasal discharge, no septal abnormalities noted. Tympanic membranes are normal and external auditory canals are clear. Oropharynx with no redness, swelling, or masses, exudates, or evidence of obstruction, uvula midline. Mucous membranes moist. Chest/axilla: Normal chest wall appearance and motion. Nontender with no deformity. No lesions are appreciated. Cardiovascular: Regular rate and rhythm with a normal S1 and S2. No gallops, murmurs, or rubs. Normal PMI, no JVD. No pulse deficits. Back: No spinal tenderness. No costovertebral tenderness. Full range of motion. 14:15 MS/ Extremity: Pulses equal, no cyanosis. Neurovascular intact. Full, normal range of motion. 14:15 Skin: Appearance: normal except for affected area, lesion(s), probable nodule(s) noted, located on the forehead. 14:15 Neuro: Orientation: is normal, Motor: is normal, moves all fours. Vital Signs: 13:57 BP 143 / 75; Pulse 89; Resp 17; Temp 97.3(TE); Pulse Ox 98% on R/A; Weight 90.72 kg tw2 (R); Height 5 ft. 6 in. (167.64 cm); Pain 0/10; 14:37 BP 135 / 78; Pulse 88; Resp 18; Temp 98; Pulse Ox 100% on R/A; mg2 13:57 Body Mass Index 32.28 (90.72 kg, 167.64 cm) tw2 MDM: 14:02 Patient medically screened. pm1 14:15 Data reviewed: vital signs. Data interpreted: Pulse oximetry: on room air is 98 %. pm1 Interpretation: normal. Counseling: I had a detailed discussion with the patient and/or guardian regarding: the historical points, exam findings, and any diagnostic results supporting the discharge/admit diagnosis, the need for outpatient follow up, to return to the emergency department if symptoms worsen or persist or if there are any questions or concerns that arise at home. Administered Medications: No medications were administered Disposition: 15:45 Co-signature as Attending Physician, Adam Wooten MD. rn Disposition: 05/17/19 14:16 Discharged to Home. Impression: Localized swelling, mass and lump of skin and subcutaneous tissue - forehead. - Condition is Stable. - Discharge Instructions: Epidermal Cyst. - Medication Reconciliation Form, Thank You Letter, Antibiotic Education, Prescription Opioid Use form. - Follow up: Emergency Department; When: As needed; Reason: Worsening of condition. Follow up: Private Physician; When: 2 - 3 days; Reason: Recheck today's complaints, Continuance of care, Re-evaluation by your physician. - Problem is new. - Symptoms have improved. Signatures: Adam Wooten MD MD rn Sandeep Rosas, CONTAINER PACKER OPERATOR CONTAINER PACKER OPERATOR pm1 Jaclyn Branch RN RN tw2 Arjun Scott RN RN mg2 Corrections: (The following items were deleted from the chart) 14:38 14:16 05/17/2019 14:16 Discharged to Home. Impression: Localized swelling, mass and mg2 lump of skin and subcutaneous tissue - forehead. Condition is Stable. Forms are Medication Reconciliation Form, Thank You Letter, Antibiotic Education, Prescription Opioid Use. Follow up: Emergency Department; When: As needed; Reason: Worsening of condition. Follow up: Private Physician; When: 2 - 3 days; Reason: Recheck today's complaints, Continuance of care, Re-evaluation by your physician. Problem is new. Symptoms have improved. pm1
[2019-05-17 15:02] VITALS: BP 135/78; TEMP 98; O2SAT 100
== END 2019-05-17 14:38 | disposition home or self-care (01) ==
LOC: ER 13:48
DX: R22.0 Localized swelling, mass and lump, head (principal); I10 Essential (primary) hypertension; E03.9 Hypothyroidism, unspecified; Z85.3 Personal history of malignant neoplasm of breast; Z88.2 Allergy status to sulfonamides; Z88.8 Allergy status to other drugs, medicaments and biological substances
CPT/HCPCS: 99281

== ENCOUNTER 2022-11-05 05:48 | Emergency (ER) | payer BC ==
--- OUTSIDE RECORDS SUMMARY | 2022-11-05 05:52 | XMS REPORT | Continuity of Care Document ---
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 Reference Range Interpretation Comments Platelet (test code = Platelet) 327 133-450 [facility] CampusWrxcqddBZCQGNTHUO3307-22-76 13:25:00 Test Item Value Reference Range Interpretation Comments RDW (test code = RDW) 14.1 11.5-14.5 [facility] CampusKaoaasoAQYGZZYAKW2926-10-94 13:25:00 Test Item Value Reference Range Interpretation Comments MPV (test code = MPV) 8.7 7.4-10.4 [facility]ltfmrpJSAVIRDKVFBE5342-81-52 13:25:00 Test Item Value Reference Range Interpretation Comments AGAP (test code = AGAP) 11.5 10.0-20.0 [facility] CenterUxrbmeqMZEWLKSIIMER7911-76-68 13:25:00 Test Item Value Reference Range Interpretation Comments A/G Ratio (test code = A/G Ratio) 1.0 0.7-1.6 [facility] CenterQzwahwbARSOUZUOVSMT9575-70-45 13:25:00 Test Item Value Reference Range Interpretation Comments Globulin (test code = Globulin) 3.9 2.7-4.2 [facility] CenterJeolqcsMWKCZDWIQYDR6635-49-26 13:25:00 Test Item Value Reference Range Interpretation Comments B/C Ratio (test code = B/C Ratio) 18 6-25 [facility] CenterZgrxxruHKAMIOZIWBQX9365-02-30 13:25:00 Test Item Value Reference Range Interpretation Comments AST (test code = AST) 13 See_Comment [Auto mated message] The system which ge nerated this result transmit johan reference range : <=37. The reference range was not used to interpr et this result as herber l/abnormal. [facility] CenterAvhpxnbXDSAVNAEQQVM4124-19-42 13:25:00 Test Item Value Reference Range Interpretation Comments Alk Phos (test code = Alk Phos) 87 39-136 [facility] CenterDhlqgahRJOLJBPWZCZD7020-68-40 13:25:00 Test Item Value Reference Range Interpretation Comments Bili Total (test code = Bili Total) 0.6 0.2-1.3 [facility] CenterOpcbwsrRTNVPPMQHOXP5117-68-89 13:25:00 Test Item Value Reference Range Interpretation Comments eGFR (test code = eGFR) 72 [facility] CenterEatgkjoOWHSJKYEKICQ8955-45-03 13:25:00 Test Item Value Reference Range Interpretation Comments Potassium Lvl (test code = Potassium 3.5 3.5-5.1 Lvl) [facility] CenterGrocgqgTZCCUSGDTHAR9019-08-07 13:25:00 Test Item Value Reference Range Interpretation Comments Sodium Lvl (test code = Sodium Lvl) 138 135-145 [facility] CenterGxvaisxAPMWEEKFIQIT5757-34-81 13:25:00 Test Item Value Reference Range Interpretation Comments Calcium Lvl (test code = Calcium Lvl) 8.6 8.5-10.5 [facility] CenterRzulofxUOECVUOVWDMC9264-54-84 13:25:00 Test Item Value Reference Range Interpretation Comments Albumin Lvl (test code = Albumin Lvl) 3.8 3.5-5.0 [facility] CenterPkzzghyYVZCEYVKKNKM9364-30-01 13:25:00 Test Item Value Reference Range Interpretation Comments Total Protein (test code = Total 7.7 6.4-8.4 Protein) [facility] CenterQddtkznDZALYCGLBKPK0863-80-50 13:25:00 Test Item Value Reference Range Interpretation Comments ALT (test code = ALT) 22 See_Comment [Auto mated message] The system which ge nerated this result transmit johan reference range : <=65. The reference range was not used to interpr et this result as herber l/abnormal. [facility] CenterBicrfodDEGXATUDOJJU8500-42-00 13:25:00 Test Item Value Reference Range Interpretation Comments CO2 (test code = CO2) 27 24-32 [facility] CenterLsotixkEYCZXSBCHYZB9938-29-05 13:25:00 Test Item Value Reference Range Interpretation Comments Chloride Lvl (test code = Chloride Lvl) 103 95-109 [facility] CenterSxjumqnELQCIRKYKKKC5423-99-81 13:25:00 Test Item Value Reference Range Interpretation Comments Creatinine Lvl (test code = Creatinine 0.87 0.50-1.40 Lvl) [facility] CenterCvghgifYBAMONLCDNGZ5894-25-99 13:25:00 Test Item Value Reference Range Interpretation Comments Glucose Lvl (test code = Glucose Lvl) 88 70-99 [facility] CenterHdrrugjTAATCNZVSBYR5263-26-38 13:25:00 Test Item Value Reference Range Interpretation Comments BUN (test code = BUN) 16 7-22 [facility] CampusEspwnvvFTOYZRPWAQ7409-82-82 13:25:00 Test Item Value Reference Range Interpretation Comments Segs (test code = Segs) 54.7 45.0-75.0 [facility] CampusVacssmlRREJYHVUBU5586-91-32 13:25:00 Test Item Value Reference Range Interpretation Comments Eosinophils # (test code 0.3 See_Comment [A utomated message] The = Eosinophils #) system whic h generated this result tra nsmitted reference range : <=0.5. The reference r fermin was not used to int erpret this result as normal/abnormal . [facility] CampusKpjavxgXOQKDFORTI1268-13-09 13:25:00 Test Item Value Reference Range Interpretation Comments Monocytes # (test code 0.6 See_Comment [Aut omated message] The = Monocytes #) system which generated this result tra nsmitted reference range : <=0.8. The reference r fermin was not used to int erpret this result as normal/abnormal . [facility] CampusQqutzekZVOMTHFQFJ3643-11-80 13:25:00 Test Item Value Reference Range Interpretation Comments Basophils # (test code 0.1 See_Comment [Aut omated message] The = Basophils #) system which generated this result tra nsmitted reference range : <=0.2. The reference r fermin was not used to int erpret this result as normal/abnormal . [facility] CampusFcfhbpkATFBARPZWL0350-29-23 13:25:00 Test Item Value Reference Range Interpretation Comments Lymphocytes # (test code = Lymphocytes 2.0 1.0-5.5 #) [facility] CampusKpqhywjDUADRJZQFE8341-84-46 13:25:00 Test Item Value Reference Range Interpretation Comments Lymphocytes (test code = Lymphocytes) 30.5 20.0-40.0 [facility] CampusBvcnepjTJUNTTGAMQ0100-34-61 13:25:00 Test Item Value Reference Range Interpretation Comments Eosinophils (test code = 4.5 See_Comment [A utomated message] The Eosinophils) system which ge nerated this result tra nsmitted reference range : <=4.0. The reference r fermin was not used to int erpret this result as normal/abnormal . [facility] CampusRqcbowxNTZCIUFLXE1673-72-84 13:25:00 Test Item Value Reference Range Interpretation Comments Monocytes (test code = Monocytes) 9.1 2.0-12.0 [facility] CampusXkrgbgjPSJKQFJAAT4941-52-69 13:25:00 Test Item Value Reference Range Interpretation Comments Segs-Bands # (test code = Segs-Bands #) 3.6 1.5-8.1 [facility] CampusZmmzfjhPHZXKWTNRW9794-70-11 13:25:00 Test Item Value Reference Range Interpretation Comments Basophils (test code = 1.2 See_Comment [Aut omated message] The Basophils) system which ge nerated this result tra nsmitted reference range : <=1.0. The reference r fermin was not used to int erpret this result as normal/abnormal . [facility] CampusLkinglgLRWXUBEOJG7694-41-74 13:25:00 Test Item Value Reference Range Interpretation Comments Hgb (test code = Hgb) 13.2 12.0-16.0 [facility] CampusJtvmjwpGVQXPUXYDG2374-14-26 13:25:00 Test Item Value Reference Range Interpretation Comments RBC (test code = RBC) 4.56 4.20-5.40 [facility] CampusSnroxfuGNALHUWECU9960-48-18 13:25:00 Test Item Value Reference Range Interpretation Comments Hct (test code = Hct) 40.6 36.0-48.0 [facility] CampusPdmueikMQBMGIPWEA8958-92-09 13:25:00 Test Item Value Reference Range Interpretation Comments MCV (test code = MCV) 89.0 80.0-98.0 [facility] CampusMgbczdoYEZBYOBJIR7824-30-52 15:10:00 Test Item Value Reference Range Interpretation Comments MPV (test code = MPV) 8.6 7.4-10.4 N [facility] CampusNovlbuhGRFCWIVJTB4820-89-22 15:10:00 Test Item Value Reference Range Interpretation Comments RBC (test code = RBC) 4.50 4.20-5.40 N [facility] CampusBjxkyxfSGOBHMWESQ7485-00-78 15:10:00 Test Item Value Reference Range Interpretation Comments WBC (test code = WBC) 7.3 3.7-10.4 N [facility] CampusNaywrweHDWWRIZJJA8558-35-84 15:10:00 Test Item Value Reference Range Interpretation Comments Platelet (test code = Platelet) 336 133-450 N [facility] CampusLxcaffhRLXYRQIOLW1148-33-26 15:10:00 Test Item Value Reference Range Interpretation Comments MCHC (test code = MCHC) 32.5 32.0-36.0 N [facility] CampusBukdqxbSRIBJRBBZX2373-12-95 15:10:00 Test Item Value Reference Range Interpretation Comments RDW (test code = RDW) 14.3 11.5-14.5 N [facility] CampusDtgdqjwTQHRXHAEFT0703-43-67 15:10:00 Test Item Value Reference Range Interpretation Comments MCH (test code = MCH) 29.9 pg 27.0-31.0 N [facility] CampusNtlxgwdEPEGTGAEAJ1209-10-08 15:10:00 Test Item Value Reference Range Interpretation Comments Hct (test code = Hct) 41.4 36.0-48.0 N [facility] CampusOklqxucJIVQDDWPCR4619-52-50 15:10:00 Test Item Value Reference Range Interpretation Comments MCV (test code = MCV) 92.1 81.0-99.0 N [facility] CampusVsszrseJFEFFJABUH9107-75-45 15:10:00 Test Item Value Reference Range Interpretation Comments Hgb (test code = Hgb) 13.4 12.0-16.0 N [facility] CampusZolaqrnXVLZKKJXYW9450-44-49 15:10:00 Test Item Value Reference Range Interpretation Comments Monocytes # (test code 0.6 See_Comment N [Aut omated message] The = Monocytes #) system which generated this result tra nsmitted reference range : <=0.8. The reference r fermin was not used to int erpret this result as normal/abnormal . [facility] CampusRwphceuPAMECXLAYU0472-94-79 15:10:00 Test Item Value Reference Range Interpretation Comments Eosinophils # (test code 0.2 See_Comment N [A utomated message] The = Eosinophils #) system whic h generated this result tra nsmitted reference range : <=0.5. The reference r fermin was not used to int erpret this result as normal/abnormal . [facility] CampusPgceiouILVTDCIYTE0374-46-72 15:10:00 Test Item Value Reference Range Interpretation Comments Basophils # (test code 0.1 See_Comment N [Aut omated message] The = Basophils #) system which generated this result tra nsmitted reference range : <=0.2. The reference r fermin was not used to int erpret this result as normal/abnormal . [facility] CampusSnhukykQVQHDIEGNB2022-04-81 15:10:00 Test Item Value Reference Range Interpretation Comments Segs-Bands # (test code = Segs-Bands #) 4.2 1.5-8.1 N [facility] CampusXmkhiwiDWTHQZGKHG8795-77-63 15:10:00 Test Item Value Reference Range Interpretation Comments Lymphocytes # (test code = Lymphocytes 2.3 1.0-5.5 N #) [facility] CampusKkjdnbvKZGXVLCCWA6843-93-78 15:10:00 Test Item Value Reference Range Interpretation Comments Eosinophils (test code = 3.0 See_Comment N [A utomated message] The Eosinophils) system which ge nerated this result tra nsmitted reference range : <=4.0. The reference r fermin was not used to int erpret this result as normal/abnormal . [facility] CampusIabhrayDRRHPIDSYF6005-65-51 15:10:00 Test Item Value Reference Range Interpretation Comments Basophils (test code = 0.9 See_Comment N [Aut omated message] The Basophils) system which ge nerated this result tra nsmitted reference range : <=1.0. The reference r fermin was not used to int erpret this result as normal/abnormal . [facility] CampusQghmgxsTAJOFLHVUO0310-33-00 15:10:00 Test Item Value Reference Range Interpretation Comments Monocytes (test code = Monocytes) 7.7 2.0-12.0 N [facility] CampusEwnmlryTMBIOPFJFN4949-67-30 15:10:00 Test Item Value Reference Range Interpretation Comments Lymphocytes (test code = Lymphocytes) 31.7 20.0-40.0 N [facility] CampusUszyjueYJZALVGAQZ8524-72-00 15:10:00 Test Item Value Reference Range Interpretation Comments Segs (test code = Segs) 56.7 45.0-75.0 N [facility]
--- NOTE | 2022-11-05 06:47 | EDPHYS ---
Physician Documentation [facility] Name: Vonda Mariee Age: 66 yrs Sex: Female : 1955 Arrival Date: 11/05/2022 Time: 05:51 Bed 20 Private MD: ED Physician Adam Wooten HPI: 11/05 06:15 This 66 yrs old Female presents to ER via Ambulatory with complaints of bleeding rn varicose vein. 06:15 The patient presents with an injury. The complaints affect the right green. Onset: The rn symptoms/episode began/occurred yesterday. Modifying factors: The symptoms are alleviated by pressure. the symptoms are aggravated by removing pressure. Associated signs and symptoms: Pertinent negatives fever. Severity of symptoms: At their worst the symptoms were mild, in the emergency department the symptoms are unchanged. The patient has not experienced similar symptoms in the past. The patient has not recently seen a physician. Pt with hx of varicose veins, was scratching leg yesterday and started to bleed, stops with pressure, but bleeding persists when pressure removed. . Historical: - Allergies: 06:05 sulfamethoxazole-trimethoprim; kd3 06:05 TRIMETHOPRIM; kd3 - PMHx: 06:05 Hypertension; Hypothyroidism; kd3 - Immunization history:: Adult Immunizations up to date, Client reports receiving the 2nd dose of the Covid vaccine. - Social history:: Smoking status: unknown. - Family history:: not pertinent. - Hospitalizations: : No recent hospitalization is reported. ROS: 06:15 Constitutional: Negative for fever, chills, and weight loss, Skin: + bleeding varicose rn vein Exam: 06:15 Constitutional: This is a well developed, well nourished patient who is awake, alert, rn and in no acute distress. MS/ Extremity: Pulses equal, no cyanosis. Neurovascular intact. Full, normal range of motion. Small punctate area of venous bleeding pre-tibial region of RLE. Vital Signs: 06:04 BP 145 / 88; Pulse 82; Resp 19; Temp 98.0(O); Pulse Ox 99% on R/A; Weight 90.72 kg; kd3 Height 5 ft. 6 in. (167.64 cm); 06:04 Body Mass Index 32.28 (90.72 kg, 167.64 cm) kd3 Procedures: 06:15 Performed Hemostasis achieved with surgicel and focal pressure for 20 minutes. Pressure rn removed, no longer bleeding, placed pressure dressing and instructed to leave on for 2 days. Return precautions given and understood. Also recommended to wear long socks/pants and care when shaving as to not cut herself again. . MDM: 05:54 Patient medically screened. rn 06:15 Differential diagnosis: bleeding varicose vein. Data reviewed: vital signs, nurses rn notes, and as a result, I will discharge patient. 06:45 Counseling: I had a detailed discussion with the patient and/or guardian regarding: the rn historical points, exam findings, and any diagnostic results supporting the discharge/admit diagnosis, the need for outpatient follow up, to return to the emergency department if symptoms worsen or persist or if there are any questions or concerns that arise at home. Response to treatment: the patient's symptoms have resolved after treatment, the patient's condition has returned to base line, and as a result, I will discharge patient. Special discussion: I discussed with the patient/guardian in detail that at this point there is no indication for admission to the hospital. It is understood, however, that if the symptoms persist or worsen the patient needs to return immediately for re-evaluation. Based on the history and exam findings, there is no indication for further emergent testing or inpatient evaluation. I discussed with the patient/guardian the need to see the primary care provider for further evaluation of the symptoms. Vein specialist. ED course: Bleeding stopped with surgicel and pressure, will dc home with return precautions. . Administered Medications: No medications were administered Disposition Summary: 11/05/22 06:46 Discharge Ordered Location: Home rn Problem: new rn Symptoms: have improved rn Condition: Stable rn Diagnosis - Varicose veins of bilateral lower extremities with other complications - Bleeding rn Followup: rn - With: Private Physician - When: As needed - Reason: Recheck today's complaints, Re-evaluation by your physician Discharge Instructions: - Discharge Summary Sheet rn - Varicose Veins rn - Bleeding Varicose Veins rn Forms: - Medication Reconciliation Form rn - Thank You Letter rn - Antibiotic internal recruiter - Prescription Opioid Use rn Signatures: Adam Wooten MD MD rn Doucette, Kyli, RN RN kd3
--- NOTE | 2022-11-05 06:47 | ER ---
Nurse's Notes [facility] Name: Vonda Mariee Age: 66 yrs Sex: Female : 1955 Arrival Date: 11/05/2022 Time: 05:51 Bed 20 Private MD: Diagnosis: Varicose veins of bilateral lower extremities with other complications-Bleeding Presentation: 11/05 06:04 Chief complaint: Patient states: I scratched a spot on my leg right where a vein is and kd3 it wont stop bleeding. Coronavirus screen: Vaccine status: Patient reports receiving the 2nd dose of the covid vaccine. Ebola Screen: No symptoms or risks identified at this time. Initial Sepsis Screen: Does the patient meet any 2 criteria? No. Patient's initial sepsis screen is negative. Does the patient have a suspected source of infection? No. Patient's initial sepsis screen is negative. Risk Assessment: Do you want to hurt yourself or someone else? Patient reports no desire to harm self or others. Onset of symptoms was November 05, 2022. 06:04 Method Of Arrival: Ambulatory kd3 06:04 Acuity: TIFFANIE 4 kd3 Triage Assessment: 06:05 General: Appears in no apparent distress. Behavior is calm, cooperative. Pain: Denies kd3 pain. Historical: - Allergies: 06:05 sulfamethoxazole-trimethoprim; kd3 06:05 TRIMETHOPRIM; kd3 - PMHx: 06:05 Hypertension; Hypothyroidism; kd3 - Immunization history:: Adult Immunizations up to date, Client reports receiving the 2nd dose of the Covid vaccine. - Social history:: Smoking status: unknown. - Family history:: not pertinent. - Hospitalizations: : No recent hospitalization is reported. Screenin:04 [facility] ED Fall Risk Assessment (Adult) History of falling in the last 3 months, aa9 including since admission No falls in past 3 months (0 pts) Confusion or Disorientation No (0 pts) Intoxicated or Sedated No (0 pts) Impaired Gait No (0 pts) Mobility Assist Device Used No (0 pt) Altered Elimination No (0 pt) Score/Fall Risk Level 0 - 2 = Low Risk Oriented to surroundings, Maintained a safe environment, Educated pt \T\ family on fall prevention, incl call for assistance when getting out of bed. Abuse screen: Denies threats or abuse. Denies injuries from another. Nutritional screening: No deficits noted. Tuberculosis screening: No symptoms or risk factors identified. Assessment: 06:53 Reassessment: Patient appears in no apparent distress at this time. Patient is alert, aa9 oriented x 3, equal unlabored respirations, skin warm/dry/pink. Patient states symptoms have improved. Vital Signs: 06:04 BP 145 / 88; Pulse 82; Resp 19; Temp 98.0(O); Pulse Ox 99% on R/A; Weight 90.72 kg; kd3 Height 5 ft. 6 in. (167.64 cm); 06:04 Body Mass Index 32.28 (90.72 kg, 167.64 cm) kd3 ED Course: 05:51 Patient arrived in ED. jj6 05:54 Adam Wooten MD is Attending Physician. rn 05:56 Cristina Jernigan, RN is Primary Nurse. aa9 06:05 Triage completed. kd3 06:05 Patient has correct armband on for positive identification. Placed in gown. Bed in low aa9 position. Call light in reach. Pulse ox on. NIBP on. 06:05 Arm band placed on. kd3 06:52 No provider procedures requiring assistance completed. Patient did not have IV access aa9 during this emergency room visit. Administered Medications: No medications were administered Medication: 06:53 VIS not applicable for this client. aa9 Outcome: 06:46 Discharge ordered by . rn 06:53 Discharged to home ambulatory. aa9 06:53 Condition: stable 06:53 Discharge instructions given to patient, Instructed on discharge instructions, follow up and referral plans. Demonstrated understanding of instructions, follow-up care, wound care. 06:53 Patient left the ED. aa9 Signatures: Adam Wooten MD MD rn Jeffries, Jennifer jj6 Hortencia Sheppard RN RN kd3 Cristina Jernigan, MARGARET RN aa9
[2022-11-05 07:02] VITALS: BP 145/88; TEMP 98; O2SAT 99
== END 2022-11-05 06:53 | disposition home or self-care (01) ==
LOC: ER 05:48
DX: I83.893 Varicose veins of bilateral lower extremities with other complications (principal); Z88.2 Allergy status to sulfonamides; Z88.8 Allergy status to other drugs, medicaments and biological substances
CPT/HCPCS: 99283